=== PATIENT | male | born 1990 | race Caucasian/White ===

== ENCOUNTER 2018-07-26 17:06 | Emergency (ER) | payer MEDICAID ==
[~2018-07-26] VITALS: Wt 72.4 kg
[2018-07-26 17:12] VITALS: Wt 72.4 kg
[2018-07-26] MEDS ORDERED: NAPR-985 PO (18:24)
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
[2018-07-26 19:29] VITALS: BP 129/96; PULSE 63; RESP 17
== END 2018-07-26 19:29 | disposition home or self-care (01) ==
LOC: FTE 17:06
DX: S05.92XA Unspecified injury of left eye and orbit, initial encounter (principal); X58.XXXA Exposure to other specified factors, initial encounter; Y92.9 Unspecified place or not applicable
CPT/HCPCS: 99282